=== PATIENT | female | born 1940 | race Caucasian/White ===

== ENCOUNTER 2017-08-06 23:05 | Emergency (ER) | payer MEDICARE, OTHER ==
--- NOTE | 2017-08-06 23:42 | XRAY Preliminary Report ---
Exam: XR CHEST 2 VIEW PA/LAT IMPRESSION: Normal 2-view chest radiography. [facility] SITE ID: [id number]
--- NOTE | 2017-08-06 23:45 | XRAY Report ---
EXAM: CHEST RADIOGRAPHY EXAM DATE: 08/06/2017 11:36 PM. CLINICAL HISTORY: Chest pain. COMPARISON: None. TECHNIQUE: 2 views. FINDINGS: Lungs/Pleura: No focal opacities evident. No pleural effusion. No pneumothorax. Normal volumes. Mediastinum: Heart and mediastinal contours are unremarkable. Other: None. IMPRESSION: Normal 2-view chest radiography. [facility] Referring Provider Line: [phone] SITE ID: [id number]
[2017-08-07 00:13] LABS: CALCIUM 9.2 mg/dL (8.5-10.3); CREATININE 0.7 mg/dL (0.4-1.0); POTASSIUM 3.3 mmol/L (3.5-5.0)
--- NOTE | 2017-08-07 00:40 | ED Physician Documentation ---
History of Present Illness - Stated complaint Stated Complaint: HEART PALP - Chief complaint Chief Complaint: Cardiac - History obtained from History obtained from: Patient, Family - History of Present Illness Timing: Today - Additonal information Additional information: 77-year-old female has been having symptoms of palpitations over the last 2 months. She will have symptoms of feeling a pounding in her chest that lasted for several hours. She does not have chest pain associated with this and she does not have other symptoms associated with this. Tonight she had an episode of this pounding in her heart and she checked her blood pressure. She had a systolic over 200. She became concerned is come to the emergency department for evaluation. She does not have a history of hypertension and she does not have medications that she takes for hypertension. She does state that today she had 3 slices of pizza and had a chicken sandwich from [email or web address] at lunch. She only drinks rarely. Review of Systems Constitutional: denies: Fever Eyes: denies: Decreased vision Ears: denies: Ear pain Nose: denies: Rhinorrhea / runny nose, Congestion, Sinus pressure / pain Throat: denies: Sore throat Cardiac: reports: Palpitations. denies: Chest pain / pressure, Pedal edema, Calf pain Respiratory: denies: Dyspnea, Cough GI: denies: Abdominal Pain, Abdominal Swelling, Nausea, Vomiting : denies: Dysuria PD PAST MEDICAL HISTORY - Past Medical History Past Medical History: Yes Cardiovascular: High cholesterol Neuro: Headache/migraine - Past Surgical History Past Surgical History: Yes HEENT: Tonsil/Adenoidectomy - Allergies Allergies/Adverse Reactions: Allergies Allergy/AdvReac Type Severity Reaction Status Date / Time No Known Drug Allergies Allergy Verified 08/06/17 23:17 - Social History Does the pt smoke?: No Smoking Status: Never smoker Does the pt drink ETOH?: No Does the pt have substance abuse?: No - Immunizations Immunizations are current?: Yes - POLST Patient has POLST: Yes PD ED PE NORMAL - Vitals Vital signs reviewed: Yes (hypertensive) - General General: No acute distress, Well developed/nourished - HEENT HEENT: Atraumatic, PERRL, EOMI - Neck Neck: Supple, no meningeal sign, No bony TTP - Cardiac Cardiac: RRR, No murmur - Respiratory Respiratory: No respiratory distress, Clear bilaterally - Abdomen Abdomen: Soft, Non tender - Back Back: No CVA TTP, No spinal TTP - Derm Derm: Normal color, Warm and dry, No rash - Extremities Extremities: No deformity, No edema - Neuro Neuro: No motor deficit, No sensory deficit - Psych Psych: Normal mood, Normal affect Results - Vitals Vitals: Vital Signs - 24 hr 08/06/17 08/07/17 23:10 01:09 Temperature 36.2 C L Heart Rate 93 77 Respiratory 18 18 Rate Blood Pressure 188/82 H 121/62 O2 Saturation 100 99 Oxygen O2 Source Room air - EKG (time done) 2314 Rate: Rate (enter#) (93) Rhythm: NSR, LAE [place]: Normal Ischemia: Normal ST segments Compare to prior EKG: Old EKG unavailable Computer interpretation: Disagree with computer (I cannot make out the RSR' in V1. ) - Labs Labs: Laboratory Tests 08/07/17 08/07/17 00:00 00:00 Sodium 140 Potassium 3.3 L Chloride 104 Carbon Dioxide 27 Anion Gap 9.0 BUN 25 H Creatinine 0.7 Estimated GFR (MDRD) 81 L Glucose 153 H Calcium 9.2 Troponin I < 0.04 - Rads (name of study) 2 veiw chest Radiology: Prelim report reviewed (Impression: Normal two-view chest radiography.), EMP read indepedently, See rad report Procedures - IVC sono (time) 1240 Bedside IVC sono: IVC measures (cm) (1.74), IVC collapsed c insp (cm) (1.52), Collapsibility index (0.12), High CVP PD MEDICAL DECISION MAKING - ED course Complexity details: reviewed old records, reviewed results, re-evaluated patient , considered differential, d/w patient, d/w family ED course: 77-year-old female with symptomatic palpitations and hypertension, appears to have her symptoms related to the hypertension. Here in the emergency department without treatment her blood pressure improves. On further history from the patient does appear she did have a salt load today and on interrogation of the inferior vena cava it does appear there is evidence of increased central venous pressure. This would be consistent with the salt load causing her hypertensive episode. Departure - Departure Disposition: 01 Home, Self Care Clinical Impression: Hypertension Qualifiers: Hypertension type: unspecified secondary hypertension Qualified Code(s): I15.9 - Secondary hypertension, unspecified Condition: Stable Instructions: ED Hypertension Poss Follow-Up: Abdirizak Child MD [Primary Care Provider] - Comments: Today it appears the palpitations you were experiencing are related to an elevation in your blood pressure. It also appears the blood pressure elevation is related to a salt "load". Reduce the salt in your diet and follow-up with your primary care doctor about your blood pressure.
[2017-08-07] MEDS ORDERED: POTASSIUM BICARB 25 MEQ TABLET PO STA (00:44)
[2017-08-07] MEDS ORDERED: POTASSIUM BICARB 25 MEQ TABLET PO ONE (00:52)
[2017-08-07 01:10] VITALS: BP 121/62
== END 2017-08-07 01:37 | disposition home or self-care (01) ==
LOC: ED 23:05
DX: I15.9 Secondary hypertension, unspecified (principal); E78.00 Pure hypercholesterolemia, unspecified; R00.0 Tachycardia, unspecified
CPT/HCPCS: 36415; 71020; 80048; 84484; 93005; 99283

== ENCOUNTER 2018-05-14 11:20 | Outpatient (CLI) | payer MEDICARE, OTHER ==
[2018-05-14 18:12] LABS: BILIRUBIN,URINE NEGATIVE (NEGATIVE); GLUCOSE, URINE (UA) NEGATIVE (NEGATIVE); KETONES,URINE (UA) NEGATIVE (NEGATIVE); LEUKOCYTE ESTERASE, URINE SMALL (NEGATIVE); NITRITE,URINE NEGATIVE (NEGATIVE); OCCULT BLOOD,URINE NEGATIVE (NEGATIVE); PROTEIN,URINE NEGATIVE (NEGATIVE); UROBILINOGEN,URINE 0.2 (NORMAL) E.U./dL (NORMAL)
[2018-05-14 18:23] LABS: CLARITY,URINE CLEAR (CLEAR)
[2018-05-14 18:24] LABS: BACTERIA,URINE Rare /HPF (None Seen); EPITHELIAL CELLS,UR RARE Transitional /HPF (<= Few); RBC,URINE 0-5 /HPF (0-5); SQUAMOUS EPITHELIAL CELL,UR RARE Squamous (<= Few)
== END 2018-05-14 11:21 | disposition home or self-care (01) ==
LOC: LAB.R 11:20
PROVIDERS: ATTEND Nurse Practitioner Family
DX: R30.0 Dysuria (principal)
CPT/HCPCS: 81001; 87086